=== PATIENT | male | born 1980 | race Two or more races ===

== ENCOUNTER 2025-01-17 10:39 | Emergency (ER) | payer OTHER, SELFPAY ==
[2025-01-17 11:03] VITALS: BP 184/94; PULSE 70; RESP 16; TEMP 36.4; O2SAT 97; BMI 28.2
--- NOTE | 2025-01-17 11:11 | ED.GENADULT ---
HPI - General Adult General Chief complaint: Skin/Abscess/Foreign Body Stated complaint: Poison jannet Time Seen by Provider: 01/17/25 11:06 Source: patient Mode of arrival: ambulatory Limitations: no limitations History of Present Illness ED Provider: Bryant Melvin HPI narrative: 44 yold male presents to the ED for poison jannet rash on forearms, torso, and lower extremities. Patient denies any swelling of lips, tongue, sore throat, chest pain, or sensation of throat closing. patient states no fever or chills Related Data Previous Rx's ?Medication ?Instructions ?Recorded diphenhydramine HCl 25 mg capsule 25 mg PO TID PRN allergic reaction 01/17/25 (Benadryl) #21 caps prednisone 10 mg tablet 10 mg PO DIRECTED 15 days #35 01/17/25 tabs Allergies Allergy/AdvReac Type Severity Reaction Status Date / Time No Known Allergies Allergy Verified 01/17/25 11:04 Review of Systems Review of Systems: Rash on forearms, torso Yes all other systems are reviewed and are negative [facility] Social History Social History Advance Directives: No Advance Directives Information Provided: No Physical Exam ED Vital Signs: Vital Signs - 24 hr 01/17/25 11:03 Temperature 97.6 F Pulse Rate 70 Respiratory Rate 16 Blood Pressure 184/94 H Pulse Oximetry 97 Oxygen Delivery Method Room Air BMI result Body Mass Index 28.2 Const General: cooperative, healthy appearing, comfortable, no acute distress, well developed, alert, awake and Physically active Orientation/consciousness: oriented to person, oriented to place and oriented to time [facility] Other: negative for lip swelling, facial swelling, tongue swelling, or drooling Head: Yes normal to inspection, Yes No palpable skull fracture present and Yes normocephalic Throat: Yes posterior oropharynx normal, Yes tonsils normal and Yes uvula midline Eyes General: appearance normal, both eyes and all related structures Neck Neck: Yes normal visual inspection, Yes full ROM, Yes no lymphadenopathy, Yes no meningeal signs, Yes trachea midline, Yes supple, No anterior neck swelling and No tender Chest Other: poison jannet rash Chest palpation & inspection: normal inspection of the chest and normal palpation of entire chest wall Resp Effort & Inspection: normal respiratory effort and able to speak in complete sentences Auscultation: clear to auscultation bilaterally Cardio Jugular venous distension: no JVD Heart sounds: S1 normal heart sound present and S2 normal heart sound present GI Other: poisoin jannet rash Inspection: Yes normal to inspection and No abdominal wall ecchymosis Palpation (GI): Soft to palpation, not firm, nontender, no guarding and not rigid General: Yes no CVA tenderness Back/Spine/Pelvis Back: no CVA tenderness and No back tenderness Skin General skin exam: no rashes or lesions noted, elasticity normal and turgor normal Neuro General: oriented to person, oriented to place, oriented to time and no meningeal signs Extrem Other: posoin jannet rash on upper and lower extremities General: Yes normal to inspection, Yes full ROM and Yes capillary refill normal Medical Decision Making Medical Decision Making MDM Narrative: 44-year-old male presents to ED itchy rash on forearms and torso for the past 2 days. Patient was in the [place] and walk through some poison jannet. Patient denies any swelling of lips, swelling of tongue, drooling, change in voice, fever, chills, or any new antibiotics. Patient to be discharged with steroids and Benadryl. Not suspecting sepsis, MRSA, Oswaldo Severiano syndrome, osteomyelitis, necrotizing fasciitis, anaphylaxis, or any other life threatening etiology. Differential Diagnosis Differential Diagnoses: The differential diagnosis associated with the presentation includes (Allergic reaction, contact dermatitis cellulitis) Admission/Observation Consideration of admission/observation: Escalation of care including admission/observation considered Independent Historian Clinical information obtained from an independent historian. History obtained from or confirmed by: Other (Patient) Prescription Management I considered prescription management with: Other (Steroid) Discharge Plan Discharge Clinical Impression: Contact dermatitis, Allergic dermatitis due to poison jannet Patient Disposition: Home, Self-Care Instructions: Contact Dermatitis (ED), Poison Jannet (ED), Cold Compress or Soak (ED) Additional Instructions: You will be discharged with steroids and Benadryl allergic reaction to poison jannet. Return to the ED immediately for any drooling, swelling of lips/tongue, change in voice, fever, chills, rash skin peeling, worsening rash, or any other concerning symptoms. [facility] [address], [place] [address]. [phone] [email or web address] (Social Influence [email or web address])/. You can make an appointment online for follow-up Prescriptions: New diphenhydramine HCl [Benadryl] 25 mg capsule 25 mg PO TID PRN (Reason: allergic reaction) Qty: 21 0RF prednisone 10 mg tablet 10 mg PO DIRECTED 15 Days Qty: 35 0RF Rx Instructions: see taper instructions take 40 mg for 5 days, then 20 mg for 5 days, then 10 mg for 5 days Stand Alone Forms: Work/School Release Interventions: ED Discharge Assessment Last Done: 01/17/25 11:44 Discharge Date/Time: 01/17/25 11:44 Print Language: Solomon Islander
[2025-01-17 11:44] VITALS: BP 184/94; PULSE 70; RESP 16; TEMP 36.4; O2SAT 97
== END 2025-01-17 11:44 | disposition home or self-care (01) ==
PROVIDERS: Emergency Provider Emergency Medicine
DX: L23.7 Allergic contact dermatitis due to plants, except food (principal)
CPT/HCPCS: 99282; 99283

== ENCOUNTER 2025-06-07 13:43 | Emergency (ER) | payer OTHER, SELFPAY ==
--- NOTE | ~2025-06-07 | CT_ITS ---
CLINICAL HISTORY: Left sided pain, hematuria CT abdomen and pelvis without contrast Comparison: None provided Findings: The lung bases are clear. Right renal lower pole 0.7 cm, left renal interpolar region 0.4 cm, 0.1 cm nonobstructing nephroliths. Left perinephric stranding. Left hydronephrosis and left hydroureter with distal left ureter obstructing nephrolith, 0.6 cm, proximally 2 cm from the left ureterovesicular junction. Cholelithiasis. The liver and spleen, adrenals and pancreas are within normal limits. No bowel obstruction, pneumoperitoneum, or pneumatosis. Umbilical hernia, defect 1 cm. The appendix is within normal limits. The prostate is within normal limits. The bones are intact. IMPRESSION: 1. Left hydronephrosis and left hydroureter with distal left ureter obstructing nephrolith, 0.6 cm, proximally 2 cm from the left ureterovesicular junction. 2. Nonobstructing nephroliths: right renal lower pole 0.7 cm, left renal interpolar region 0.4 cm and 0.1 cm. 3. Cholelithiasis. This document has been electronically signed by: Jarrod Hunter MD on 06/07/2025 21:55:34
--- NOTE | 2025-06-07 14:06 | ED_ITS ---
HPI - General Adult General Chief complaint: Abdominal Pain Stated complaint: Stomach and L Side Pain Time Seen by Provider: 06/07/25 19:38 History of Present Illness ED Provider: Laura CALIX narrative: 44-year-old male with a history of hypertension who presents with left-sided abdominal pain that began yesterday (Saturday) around noon. The pain is located just above and to the left of the umbilicus. It worsened after the patient reclined to rest and was more severe this morning. Pain intermittently woke him overnight. This morning he experienced nausea and vomited once. He describes repeated urges to defecate with minimal output consisting of small amounts of loose, fragmented stool and fluid; the first thing to pass was flatus. Denies aristeo diarrhea. States pain is similar to a prior kidney stone episode, though that occurred on the opposite side. Pain increases with palpation over the supra-umbilical/left mid-abdominal area. No dysuria or other urinary symptoms reported. He did not take his usual blood pressure medication today because he felt unwell. Arrived by private vehicle, driven by himself. Related Data Previous Rx's ?Medication ?Instructions ?Recorded diphenhydramine HCl 25 mg capsule 25 mg PO TID PRN all ergic reaction 01/17/25 (Benadryl) #21 caps prednisone 10 mg tablet 10 mg PO DIRECTED 15 days #35 01/17/25 tabs acetaminophen 500 mg capsule 1,000 mg (2 x 500 mg) PO Q8H PRN 06/07/25 fever or pain #14 caps ibuprofen 400 mg tablet 400 mg PO Q6H PRN pain #14 t abs 06/07/25 ondansetron 4 mg disintegrating 4 mg PO Q6H PRN nausea and 06/07/25 tablet vomiting #10 tabs oxycodone 5 mg tablet 5 mg PO Q6H PRN pain #8 tabs 06/07/25 Allergies Allergy/AdvReac Type Severity Reaction Status Date / Time No Known Allergies Allergy Verified 06/07/25 14:10 Review of Systems 2 Review of Systems: Yes all other systems are reviewed and are negative [facility] Social History Social History Alcohol intake: never Physical Exam ED Vital Signs: Vital Signs - 24 hr 06/07/25 14:07 06/07/25 19:40 06/07/25 22:23 Temperature 97 F 99.5 F 98.7 F Pulse Rate 70 84 74 Respiratory Rate 18 20 14 Blood Pressure 208/104 H 182/119 H 183/101 H Pulse Oximetry 98 96 96 Oxygen Delivery Method Room Air Room Air Room Air 06/07/25 23:03 Temperature 98.7 F Pulse Rate 74 Respiratory Rate 14 Blood Pressure 172/101 H Pulse Oximetry 96 Oxygen Delivery Method Room Air BMI result Body Mass Index 28.8 Const Other: the patient is awake and alert, pleasant and cooperative. He was pleasant and cheerful. He did not appear obviously uncomfortable. Orientation/consciousness: patient oriented x3 HENMT Other: The face is symmetrical. Mucous membranes moist. Eyes Other: Pupils are round equal, conjunctivae are clear, extraocular movements intact Neck Neck: Yes normal visual inspection and Yes full ROM Resp Effort & Inspection: normal respiratory effort Auscultation: clear to auscultation bilaterally Cardio Rate: regular rate Rhythm: regular rhythm Heart sounds: S1 normal heart sound present and S2 normal heart sound present GI Other: The patient is abdomen is soft. He seems to have some left-sided abdominal tenderness. No rebound or guarding Back/Spine/Pelvis Other: Left-sided CVA percussion tenderness is present Skin Other: The skin is dry and unremarkable Neuro General: patient oriented x3, tone normal, moves all extremities, no focal motor deficits and CN's II-XI intact bilaterally Extrem Other: There is no calf swelling or tenderness. No asymmetry. No peripheral edema. Course Course Course Narrative: Rapid medical examination performed in triage by Debra Patel PA-C: Patient is a 44 year old male presenting to the emergency department with nausea and dry mouth. Detailed physical exam and review of systems are deferred to the sales correspondence clerk. Labs and swabs ordered. Patient placed back in the waiting room pending room availability and results. Medications Administered Discontinued Medications Generic Name Dose Route Start Last Admin Trade Name Freq PRN Reason Stop Dose Admin Acetaminophen 975 mg 06/07/25 22:13 06/07/25 22:46 Acetaminophen 325 Mg Tablet PO 06/07/25 22:14 975 mg ONCE ONE Administration Sodium Chloride 1,000 mls @ 999 mls/hr 06/07/25 20:00 06/07/25 22:49 Ns IV 06/07/25 21:00 Infused .Q1H1M GEETHA Infusion Ketorolac Tromethamine 15 mg 06/07/25 19:50 06/07/25 20:38 Ketorolac Tromethamine 15 Mg/Ml Vial IVPUSH 06/07/25 19:51 15 mg ONCE ONE Administration Ondansetron HCl 4 mg 06/07/25 19:50 06/07/25 20:38 Ondansetron Hcl 4 Mg/2 Ml Vial IVPUSH 06/07/25 19:51 4 mg ONCE ONE Administration Tamsulosin HCl 0.4 mg 06/07/25 22:13 06/07/25 22:46 Tamsulosin Hcl 0.4 Mg Capsule PO 06/07/25 22:14 0.4 mg ONCE ONE Administration Medical Decision Making Medical Decision Making [facility] Narrative: The patient is a 44-year-old male who presents with a complaint of left-sided abdominal discomfort and left flank pain. He has left-sided CVA percussion tenderness. Complains of left-sided abdominal pain and he seems to have some left-sided abdominal tenderness but his exam I thought probably was more consistent with a kidney stone than an acute intra-abdominal process. He has some degree of microscopic hematuria on his urinalysis. The patient was given IV ketorolac for pain. A noncontrast CT of the abdomen and pelvis was done. This shows a 0.6 cm stone in the left distal ureter. There are also some intrarenal stones as well. I reviewed all of these findings with the patient. He looks well enough for outpatient management. He was given a dose of tamsulosin. He will be given prescriptions for acetaminophen, ibuprofen, ondansetron, and oxycodone. He should follow up with Urology or return if worse. Lab Data 06/07/25 14:23 06/07/25 14:23 Labs: Lab Results 06/07/25 06/07/25 Range/Units 14:23 19:56 WBC 17.0 H (4.8-10.8) X10*3/uL RBC 5.28 (4.60-5.80) X10*6/uL Hgb 16.3 (14.0-18.0) g/dl Hct 47.6 (42.0-52.0) % MCV 90.2 (80.0-98.0) fL MCH 30.9 (27.0-33.0) pg MCHC 34.2 (31.0-36.0) g/dl RDW 11.9 (11.0-16.0) % Plt Count 292 (160-400) X10*3/uL MPV 10.5 (9.4-12.4) fL Immature Gran % (Auto) 0.5 H (0.0-0.4) % Neut % (Auto) 82.7 H (45-73) % Lymph % (Auto) 8.1 L (20-40) % Hardeman % (Auto) 8.1 (2-11) % Eos % (Auto) 0.2 (0-4) % Baso % (Auto) 0.4 (0-2) % Lymph # (Auto) 1.4 (1.2-4.9) X10*3/uL Hardeman # (Auto) 1.4 H (0.1-1.2) X10*3/uL Eos # (Auto) 0.0 (0.0-0.4) X10*3/uL Baso # (Auto) 0.1 (0.0-0.2) X10*3/uL Abs Immat Gran (auto) 0.09 H (0.00-0.03) X10*3/uL Absolute Neuts (auto) 14.0 H (2.0-8.3) x10*3/uL Absolute Nucleated RBC 0.000 (0.0-0.012) X10*3/uL Nucleated RBC % (auto) 0.0 (0.0-0.2) /100WBC Sodium 141 (135-145) mmol/L Potassium 4.4 (3.3-5.1) mmol/L Chloride 107 (96-108) mmol/L Carbon Dioxide 27 (22-29) mmol/L Anion Gap 11 L (12-20) BUN 12 (9-16) mg/dL Creatinine 1.12 (0.5-1.4) mg/dL Estim Creat Clear Calc 91.6 Estimated GFR > 60 Random Glucose 114 (60-115) mg/dL Calcium 9.6 (8.4-10.2) mg/dL Magnesium 2.1 (1.6-2.6) mg/dL Total Bilirubin 0.7 (0.0-1.0) mg/dL AST 27 (5-37) U/L ALT 31 (0-40) U/L Alkaline Phosphatase 115 (39-117) U/L C-Reactive Protein 0.20 (< or = 0.50) mg/dL Total Protein 7.2 (6.5-8.0) g/dL Albumin 4.8 (3.5-5.0) g/dL Lipase 20 (8-78) U/L Urine Color Yellow Urine Appearance Error Urine pH 7.5 (5.0-9.0) Ur Specific [place] 1.015 (1.005-1.025) Urine Protein Trace (Neg-Trace) mg/dL Urine Glucose (UA) Negative (Negative) mg/dL Urine Ketones Negative (Negative) mg/dL Urine Blood Small (1+) H (Negative) Urine Nitrite Negative (Negative) Ur Leukocyte Esterase Negative (Negative) Urine RBC 11-20 H (0-2) /HPF Urine WBC 0-5 (0-5) /HPF Ur Squamous Epith Cells 0-2 (0-2) /HPF Urine Bacteria None Seen (None Seen) Hyaline Casts 0-2 (0-2) /LPF Influenza Type A (PCR) NEGATIVE (Negative) Influenza Type B (PCR) NEGATIVE (Negative) RSV RNA Qual (PCR) NEGATIVE (Negative) SARS-CoV-2 RNA (RT-PCR) NEGATIVE (Negative) Discharge Plan Discharge Clinical Impression: Calculus of distal left ureter, Ureteral colic Patient Disposition: Home, Self-Care Instructions: Renal Colic (ED), Ureteral Stones (ED) Additional Instructions: you have a 6 mm stone in your left far ureter. Stones of thi size usually pass on their own without a procedure. For pain control I have sent prescriptions for acetaminophen and ibuprofen. Use these medications for pain control. I have also sent a prescription for oxycodone which you may use in addition if necessary. No driving on oxycodone. I have also sent a prescription for the antinausea medication ondansetron. You may use this as needed if necessary. Drink lot of fluids. Please contact the urology office for a follow up appointment. You have other stones in your kidneys in addition to the stone in your left ureter today. You have a 7 mm stone in your right kidney and in your left kidney you have a 4 mm stone and a 1 mm stone. Return to the emergency room if significantly worse. Prescriptions: New ibuprofen 400 mg tablet 400 mg PO Q6H PRN (Reason: pain) Qty: 14 0RF ondansetron 4 mg tablet,disintegrating 4 mg PO Q6H PRN (Reason: nausea and vomiting) Qty: 10 0RF acetaminophen 500 mg capsule 1,000 mg PO Q8H PRN (Reason: fever or pain) Qty: 14 0RF oxycodone 5 mg tablet 5 mg PO Q6H PRN (Reason: pain) Qty: 8 0RF Rx Instructions: Partial Fill upon patient request. No Action diphenhydramine HCl [Benadryl] 25 mg capsule 25 mg PO TID PRN (Reason: allergic reaction) Qty: 21 0RF prednisone 10 mg tablet 10 mg PO DIRECTED 15 Days Qty: 35 0RF Rx Instructions: see taper instructions take 40 mg for 5 days, then 20 mg for 5 days, then 10 mg for 5 days Referrals: [facility] [Provider Group, Urology] Group,[facility] [Primary Care Provider, Primary Care] Interventions: ED Discharge Assessment Last Done: 06/07/25 23:03 Discharge Date/Time: 06/07/25 23:05 Print Language: Ukrainian
[2025-06-07 14:07] VITALS: BP 208/104; PULSE 70; RESP 18; TEMP 36.1; O2SAT 98; BMI 28.8
[2025-06-07 14:36] LABS: MANUAL DIFF FLAG NO
[2025-06-07 14:39] LABS: Hematocrit 47.6 % (42.0-52.0); Hemoglobin 16.3 g/dl (14.0-18.0); Imm Gran Abs Auto 0.09 X10*3/uL (0.00-0.03); Imm Gran Pct Auto 0.5 % (0.0-0.4); Lymphocytes Absolute Auto 1.4 X10*3/uL (1.2-4.9); Mean Corpuscular HGB Conc 34.2 g/dl (31.0-36.0); Mean Corpuscular Hemoglobin 30.9 pg (27.0-33.0); Mean Corpuscular Volume 90.2 fL (80.0-98.0); NRBC Abs Auto 0.000 X10*3/uL (0.0-0.012); NRBC Pct Auto 0.0 /100WBC (0.0-0.2); Platelet Count 292 X10*3/uL (160-400); Red Blood Count 5.28 X10*6/uL (4.60-5.80); White Blood Count 17.0 X10*3/uL (4.8-10.8)
[2025-06-07 14:57] LABS: Alanine Aminotransferase 31 U/L (0-40); Albumin Level 4.8 g/dL (3.5-5.0); Alkaline Phosphatase 115 U/L (39-117); Anion Gap 11 (12-20); Aspartate Amino Transferase 27 U/L (5-37); Blood Urea Nitrogen 12 mg/dL (9-16); Calcium 9.6 mg/dL (8.4-10.2); Carbon Dioxide 27 mmol/L (22-29); Chloride 107 mmol/L (96-108); Creatinine Clr Calc Pharmacy 91.6; Estimated Glomerular Filt Rate > 60; Lipase 20 U/L (8-78); Magnesium 2.1 mg/dL (1.6-2.6); Potassium 4.4 mmol/L (3.3-5.1); Sodium 141 mmol/L (135-145); Total Protein 7.2 g/dL (6.5-8.0)
[2025-06-07 15:13] LABS: Resp Syncy Virus RNA Qual PCR NEGATIVE (Negative); SARS COV2 PCR INHOUSE NEGATIVE (Negative)
[2025-06-07 19:40] VITALS: BP 182/119; PULSE 84; RESP 20; TEMP 37.5; O2SAT 96
[2025-06-07 20:06] LABS: Appearance Urine Error; Glucose Urine UA Negative (Negative); PH 7.5 (5.0-9.0); Specific Gravity - Urine 1.015 (1.005-1.025); UMIC TRIGGER UACC YES
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
[2025-06-07 22:23] VITALS: BP 183/101; PULSE 74; RESP 14; TEMP 37.1; O2SAT 96
[2025-06-07 23:03] VITALS: BP 172/101; PULSE 74; RESP 14; TEMP 37.1; O2SAT 96
== END 2025-06-07 23:05 | disposition home or self-care (01) ==
PROVIDERS: Physician Assistant Medical; Emergency Provider Emergency Medicine
DX: N20.1 Calculus of ureter (principal); R31.9 Hematuria, unspecified; R10.A2 Flank pain, left side; Z03.818 Encounter for observation for suspected exposure to other biological agents ruled out
CPT/HCPCS: 74176; 80053; 81001; 83690; 83735; 85025; 86140; 87637; 96361; 96374; 96375; 99284; 99285; J1885; J2405

== ENCOUNTER → 2025-06-07 20:14 | Outpatient (BNV) | payer OTHER, SELFPAY | PROVIDERS: Emergency Provider Emergency Medicine; Visit Provider Radiology Diagnostic Radiology | DX: K80.20 Calculus of gallbladder without cholecystitis without obstruction (principal); N13.2 Hydronephrosis with renal and ureteral calculous obstruction; N20.0 Calculus of kidney | CPT/HCPCS: 74176 ==

== ENCOUNTER 2025-06-14 15:38 | Outpatient (AMB) | payer OTHER, SELFPAY ==
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
== END 2025-06-14 16:06 | disposition home or self-care (01) ==
LOC: HO.HUSH 15:38
PROVIDERS: Visit Provider Nurse Practitioner Family
DX: N20.0 Calculus of kidney (principal); N13.2 Hydronephrosis with renal and ureteral calculous obstruction; R10.A0 Flank pain, unspecified side; Z13.9 Encounter for screening, unspecified
CPT/HCPCS: 99204

== ENCOUNTER 2025-06-14 15:38 | Outpatient (REF) | payer OTHER, SELFPAY | END 2025-06-14 15:39 | disposition home or self-care (01) | LOC: HO.LAB 15:38 | PROVIDERS: Visit Provider Nurse Practitioner Family | DX: N13.2 Hydronephrosis with renal and ureteral calculous obstruction (principal); R10.A2 Flank pain, left side; Z13.89 Encounter for screening for other disorder | CPT/HCPCS: 81003; 82365; 88300; 99202 ==